=== PATIENT | female | born 1955 ===

== ENCOUNTER 2020-01-07 11:30 | Inpatient (IN) | payer OTHER ==
[~2020-01-07] VITALS: Ht 157.5 cm; Wt 79.8 kg
[2020-01-07] MEDS ORDERED: PROTONIX40 M1 PO (12:44)
[2020-01-07] MEDS ORDERED: CYMBALTA60 MG PO (12:44)
[2020-01-07] MEDS ORDERED: SYNTHROID100 MCG PO (12:44)
[2020-01-07] MEDS ORDERED: PROSOM PO (12:45)
[2020-01-07] MEDS ORDERED: WELLBUTRIN SR150 MG PO (12:45)
[2020-01-07] MEDS ORDERED: CLONAZEPAM1 MG PO (12:45)
[2020-01-07] MEDS ORDERED: CELEBREX50 MG (12:47)
[2020-01-07] MEDS ORDERED: CENTRUM ADULTS1 EACH PO (12:48)
[2020-01-10] MEDS ORDERED: ESTAZOLAM2 MG PO (10:13)
[2020-01-10] MEDS ORDERED: IRBESARTAN-HCT1 EACH (10:13)
[2020-01-10] MEDS ORDERED: SYSTANE 0.3-0.415 ML (10:14)
[2020-01-10] MEDS ORDERED: RESTASIS1 EACH (10:14)
[2020-01-10] MEDS ORDERED: MAGNESIUM400 M1 PO (10:16)
[2020-01-10] MEDS ORDERED: MEDROLPACK PO (12:06)
[2020-01-10] MEDS ORDERED: COLACE100 MG PO (12:06)
[2020-01-10] MEDS ORDERED: PERCOCET 5-3251 EACH PO (12:06)
== END 2020-01-11 13:14 | disposition home or self-care (01) | DRG 473 ==
LOC: O/R 01-10 05:00 → SURG 01-10 05:00 → SURH 01-10 07:00 → O/R 01-10 11:30 → SURH 01-10 11:30 → SURG 01-10 14:29
PROVIDERS: ADMIT Orthopaedic Surgery Orthopaedic Surgery of the Spine
PROC: 0RT30ZZ Resection of Cervical Vertebral Disc, Open Approach (ICD-10-PCS; 2020-01-10)
PROC: 0RG20A0 Fusion of 2 or more Cervical Vertebral Joints with Interbody Fusion Device, Anterior Approach, Anterior Column, Open Approach (ICD-10-PCS; principal; 2020-01-10 07:00)
DX: M50.021 Cervical disc disorder at C4-C5 level with myelopathy (principal); M54.12 Radiculopathy, cervical region; I10 Essential (primary) hypertension